=== PATIENT | female | born 1960 | race Caucasian/White ===

== ENCOUNTER 2016-10-25 20:17 | Emergency (ER) | payer OTHER ==
[~2016-10-25] VITALS: Ht 157.5 cm; Wt 82.9 kg
[~2016-10-25 20:17] MED LIST: ADULT LOW DOSE81 M1 PO; ASPIRIN E.C.81 M1 PO; CATAPRES0.1 MG PO; Colace PO; DILAUDID1 MG/ML IV; DUONEB3 ML IH; GEMFIBROZIL600 MG PO; IMITREX50 MG; LOVAZA1 GM; LOVAZA1 GM PO; LOVENOX40 MG/0.4 SC; Lopid PO; NEURONTIN300 MG PO; OFLOXACIN10 M1 LEFT EYE; PHENERGAN-CODE120 ML PO; PROMETHAZINE HC25 M1 PO; PROPRANOLOL HCL40 MG PO; PROTONIX40 MG PO; Rocephin IV; SALINE FLUSH 5 M5 ML IV; SERTRALINE HCL100 MG PO; Tessalon Perle PO; Tylenol Regular Stre PO; ZITHROMAX Z-PA250 MG PO; ZOLOFT100 M1 PO; Zithromax IV; Zofran IV; Zoloft PO
[2016-10-25] MEDS ORDERED: ACETAMINOPHEN500 MG PO (22:31)
[2016-10-25 23:18] VITALS: BP 161/90
== END 2016-10-25 22:32 | disposition home or self-care (01) ==
LOC: EME → EDBD 20:17 → EME 22:32
DX: S16.1XXA Strain of muscle, fascia and tendon at neck level, initial encounter (principal); M79.642 Pain in left hand; V49.40XA Driver injured in collision with unspecified motor vehicles in traffic accident, initial encounter; I10 Essential (primary) hypertension; Z86.711 Personal history of pulmonary embolism
CPT/HCPCS: 71020; 72125; 99281; 99284; J1885; J3010

== ENCOUNTER → 2016-12-29 | Outpatient (CLI) | payer OTHER ==
[~2016-12-29] VITALS: Ht 157.5 cm; Wt 78.0 kg
[~2016-12-29] MED LIST changes: +ACETAMINOPHEN500 MG PO; +BENTYL10 MG PO; +IMITREX50 MG PO; +INDERAL40 MG PO; +MULTIVITAMIN1 EAC2 PO
== END | disposition home or self-care (01) ==
LOC: AMB 11-03 10:00
PROC: 0DBE8ZX Excision of Large Intestine, Via Natural or Artificial Opening Endoscopic, Diagnostic (ICD-10-PCS; principal; 2016-12-29)
DX: R19.7 Diarrhea, unspecified (principal); Z86.010 Personal history of colon polyps; R19.8 Other specified symptoms and signs involving the digestive system and abdomen; R10.31 Right lower quadrant pain; K59.00 Constipation, unspecified; D17.5 Benign lipomatous neoplasm of intra-abdominal organs; R11.2 Nausea with vomiting, unspecified; Z80.0 Family history of malignant neoplasm of digestive organs; I10 Essential (primary) hypertension; Z86.711 Personal history of pulmonary embolism; Z86.718 Personal history of other venous thrombosis and embolism; Z88.5 Allergy status to narcotic agent
CPT/HCPCS: 88305; 88312; 88313; 93005; J2250; J2405; J3010